=== PATIENT | male | born 1950 | race Caucasian/White ===

== ENCOUNTER → 2016-07-21 | Outpatient (CLI) | payer MEDICARE ==
[2016-07-21 10:06] LABS: BASO # 0.1 K/mm3 (0.0-0.2); BASO % 1.3 % (0.0-1.0); EOS # 0.3 K/mm3 (0.0-0.50); EOS % 4.3 % (0.0-3.0); LARGE UNSTAINED CELL # 0.1 K/mm3 (0.0-0.4); LARGE UNSTAINED CELL % 1.8 % (0.0-4.0); LYMPH # 1.2 K/mm3 (1.5-4.5); LYMPH % 13.5 % (24.0-44.0); MEAN CORPUSCULAR HEMOGLOBIN 30.8 pg (27.0-33.0); MEAN CORPUSCULAR HGB CONC 32.6 g/dl (32.0-36.5); MEAN CORPUSCULAR VOLUME 94.2 fl (80.0-96.0); MONO # 0.5 K/mm3 (0.0-0.8); MONO % 5.9 % (0.0-5.0); NEUTROPHILS # 5.6 K/mm3 (1.8-7.7); NEUTROPHILS % 73.2 % (36.0-66.0); PLATELET COUNT, AUTOMATED 168 k/mm3 (150-450); RED CELL DISTRIBUTION WIDTH 13.7 % (11.5-14.5); WHITE BLOOD COUNT 7.7 K/mm3 (4.0-10.0)
[2016-07-21 10:35] LABS: ALBUMIN 2.9 GM/DL (3.2-5.2); ALBUMIN/GLOBULIN RATIO 0.88 (1.00-1.93); BILIRUBIN,TOTAL 0.3 MG/DL (0.2-1.0); CALCIUM LEVEL 9.3 MG/DL (8.8-10.2); CREATININE FOR GFR 1.88 MG/DL (0.70-1.30); GLOMERULAR FILTRATION RATE 38.5 (>49); MAGNESIUM LEVEL 1.9 MG/DL (1.8-2.4); PERCENT SATURATION 27.6 % (19.7-37.4); PHOSPHORUS LEVEL 3.4 MG/DL (2.5-4.9); POTASSIUM SERUM 4.4 MEQ/L (3.5-5.1); TOTAL PROTEIN 6.2 GM/DL (6.4-8.2)
[2016-07-21 13:11] LABS: PRETREATED FOLATE FOR RBCFOL 17.5 NG/ML
== END ==
LOC: M WUC 08:26
PROVIDERS: ATTEND Surgery
DX: Z98.84 Bariatric surgery status (principal); K91.2 Postsurgical malabsorption, not elsewhere classified; E55.9 Vitamin D deficiency, unspecified

== ENCOUNTER → 2016-08-28 | Outpatient (CLI) | payer MEDICARE ==
--- NOTE | 2016-08-28 09:49 | REP ---
Not so marked lumbar spine five views: Comparison is 07/09/2014. There is mild scoliosis convex right at the thoracolumbar junction. There is surgical staple lines in the abdominal left upper quadrant, not present previously. There is bilateral L5 spondylolysis with grade 1 spondylolisthesis, not significantly changed. Vertebral alignment is otherwise unremarkable. Vertebral body heights are normal. There is anterior spurring at the T11-12, T12-L1, L1-2, and L2-3 disc spaces compatible with degenerative disc disease at these levels. There is disc space narrowing at T11-12, T12-L1, L1-2 and L5- S1 also compatible with degenerative disc disease. The pedicles and facets are unremarkable. The sacroiliac articulations are unremarkable. There are calcifications in the pelvis inferior to the sacroiliac articulations, likely vascular atheromatous calcifications, however, ureteral calculi are not entirely discounted. Correlation with symptomatology is recommended. Impression: Scoliosis. Multilevel degenerative disc disease. L5 bilateral spondylolysis with grade 1 spondylolisthesis, unchanged. Pelvic calcifications, likely vascular atheroma although ureteral calculi are not entirely discounted. Surgical staple lines in the abdominal left upper quadrant. Signed by Tree Hurst MD 08/28/2016 09:41 A
== END ==
LOC: M WUC 09:00
PROVIDERS: ATTEND Family Medicine
DX: M41.9 Scoliosis, unspecified (principal); M51.9 Unspecified thoracic, thoracolumbar and lumbosacral intervertebral disc disorder; M43.10 Spondylolisthesis, site unspecified

== ENCOUNTER → 2016-12-24 | Outpatient (CLI) | payer MEDICARE ==
--- NOTE | 2016-12-24 10:29 | REP ---
URINARY TRACT SONOGRAPHY: Renal Doppler arterial flow assessment: HISTORY: Renovascular hypertension. Comparison study January 28, 2010. MORPHOLOGIC FINDINGS: Scanning at the level of the urinary bladder shows poor filling but no other abnormality. Renal cortical echogenicity pattern is somewhat increased bilaterally consistent with chronic medical renal disease and renal contours are smooth on both sides. The right kidney measures 9.4 x 5.8 x 5.7 cm. Left renal dimensions are 10.3 x 6.1 x 6.1 cm. Previous ultrasound dimensions are somewhat larger, right renal length is 11.4 and left renal length 11.8 cm. In the right kidney, there is a 1.9 x 1.8 x 2.7 cm parapelvic cyst. Previously this was noted measuring 1.0 cm in greatest diameter. In the left kidney, there is a 1.3 x 1.0 x 0.8 cm parapelvic cyst at the upper pole region. Previously this measured 0.9 cm in greatest diameter. Today's study also shows a 0.8 cm cyst at the lower pole. RENAL DOPPLER FLOW ASSESSMENT: Peak systolic flow velocity in the abdominal aorta at the level of the main renal arteries is normal at 106.9 cm/s. Peak systolic flow velocity in the right main renal artery is 107 cm/s as well and that recorded in the left main renal artery is 98 cm/s. Renal to aortic flow velocity ratios are therefore normal at 1.0 on the right and 0.9 on the left. The resistive indices and acceleration times of the intralobar arteries are measured bilaterally in the upper, mid and lower poles of these values are normal on both sides. IMPRESSION: 1. No Doppler evidence to suggest renal artery stenosis. 2. Increased renal cortical echogenicity pattern consistent with chronic medical renal disease bilaterally. Some atrophy suspected since the prior study. 3. Bilateral peripelvic cysts. The largest of these is on the right measuring 2.7 cm in greatest diameter. Signed by Franky Farley MD 12/24/2016 12:38 P
== END ==
LOC: M RAD 08:34
PROVIDERS: ATTEND Internal Medicine Nephrology
DX: N28.9 Disorder of kidney and ureter, unspecified (principal); I15.0 Renovascular hypertension

== ENCOUNTER → 2017-02-10 | Outpatient (CLI) | payer MEDICARE ==
--- NOTE | 2017-02-10 13:51 | REP ---
CAROTID ULTRASOUND: Real-time ultrasound evaluation and duplex Doppler interrogation of the extracranial carotid vascular is performed. Mild scattered plaquing and narrowing is seen in both common carotid arteries and carotid bulbs extending into the internal carotid arteries bilaterally. There is mild elevation of the peak systolic velocity in the right internal carotid artery, but there is also a similar velocity in the right common carotid artery with normal ICA to CCA ratios, suggesting that there is not significant stenosis of the right internal carotid artery. Luminal narrowing visually appears to be less than 50%. There is normal direction of flow in both vertebral arteries. RIGHT LEFT Peak systolic velocity ICA 132.2 cm/s 105.0 cm/s End diastolic velocity ICA 34.7 cm/s 30.7 cm/s Peak systolic velocity CCA 132.2 cm/s 140.7 cm/s Peak systolic velocity ECA 168.3 cm/s 141.4 cm/s ICA/CCA ratio 1.0 0.75 IMPRESSION: Mild scattered plaquing and narrowing in both carotid systems as discussed above with luminal narrowing appearing to be less than 50%. No evidence for hemodynamically significant stenosis. There is mild elevation of the peak systolic velocity in the right internal carotid artery, but there is also a mild elevation of the peak systolic velocity in the common carotid arteries, with normal ICA to CCA ratios. There is not felt to be significant stenosis in either internal carotid artery. More complete evaluation may be made with MRA if clinically indicated. Signed by Tree Martins MD 02/11/2017 05:51 P
== END ==
LOC: M RAD 12:10
PROVIDERS: ATTEND Internal Medicine Interventional Cardiology
DX: I65.22 Occlusion and stenosis of left carotid artery (principal); I25.10 Atherosclerotic heart disease of native coronary artery without angina pectoris

== ENCOUNTER → 2017-03-25 | Outpatient (CLI) | payer MEDICARE ==
[2017-03-25 12:14] LABS: MEAN CORPUSCULAR HEMOGLOBIN 31.2 pg (27.0-33.0); MEAN CORPUSCULAR HGB CONC 32.4 g/dl (32.0-36.5); MEAN CORPUSCULAR VOLUME 96.4 fl (80.0-96.0); PLATELET COUNT, AUTOMATED 174 k/mm3 (150-450); RED CELL DISTRIBUTION WIDTH 12.9 % (11.5-14.5); WHITE BLOOD COUNT 6.7 K/mm3 (4.0-10.0)
[2017-03-25 12:15] LABS: ADD MANUAL DIFFER NO; BASO % 0.5 % (0.0-1.0); DIFF SLIDE NUMBER 149; EOS # 0.2 K/mm3 (0.0-0.50); EOS % 2.2 % (0.0-3.0); LARGE UNSTAINED CELL # 0.1 K/mm3 (0.0-0.4); LARGE UNSTAINED CELL % 1.2 % (0.0-4.0); LYMPH % 14.5 % (24.0-44.0); MONO # 0.5 K/mm3 (0.0-0.8); MONO % 6.8 % (0.0-5.0); NEUTROPHILS % 74.8 % (36.0-66.0)
[2017-03-25 13:27] LABS: ALBUMIN 3.2 GM/DL (3.2-5.2); BILIRUBIN,TOTAL 0.3 MG/DL (0.2-1.0); CALCIUM LEVEL 9.2 MG/DL (8.8-10.2); CREATININE FOR GFR 2.21 MG/DL (0.70-1.30); GLOMERULAR FILTRATION RATE 31.9 (>49); POTASSIUM SERUM 4.9 MEQ/L (3.5-5.1); TOTAL PROTEIN 6.4 GM/DL (6.4-8.2)
== END ==
LOC: M WUC 08:01
PROVIDERS: ATTEND Family Medicine
DX: N18.4 Chronic kidney disease, stage 4 (severe) (principal); R73.01 Impaired fasting glucose; E03.9 Hypothyroidism, unspecified

== ENCOUNTER → 2017-07-05 | Outpatient (REF) | payer MEDICARE | LOC: M LAB REF 13:49 | PROVIDERS: ATTEND Family Medicine | DX: N45.3 Epididymo-orchitis (principal) ==

== ENCOUNTER → 2017-09-28 | Outpatient (CLI) | payer MEDICARE ==
[2017-09-28 09:26] LABS: BASO % 0.5 % (0.0-1.0); EOS # 0.2 10^3/uL (0.0-0.50); EOS % 2.3 % (0.0-3.0); HEMATOCRIT 37.3 % (42.0-52.0); HEMOGLOBIN 12.1 g/dl (14.0-18.0); IMMATURE GRANULOCYTE % 0.4 % (0-3.0); LYMPH # 1.2 10^3/uL (1.5-4.5); LYMPH % 15.4 % (24.0-44.0); MEAN CORPUSCULAR HEMOGLOBIN 30.6 pg (27.0-33.0); MEAN CORPUSCULAR HGB CONC 32.4 g/dl (32.0-36.5); MEAN CORPUSCULAR VOLUME 94.4 fl (80.0-96.0); MONO # 0.7 10^3/uL (0.0-0.8); MONO % 8.8 % (0.0-5.0); NEUTROPHILS # 5.4 10^3/uL (1.8-7.7); NEUTROPHILS % 72.6 % (36.0-66.0); PLATELET COUNT, AUTOMATED 151 10^3/uL (150-450); RED BLOOD COUNT 3.95 10^6/uL (4.30-6.10); RED CELL DISTRIBUTION WIDTH 14.4 % (11.5-14.5); WHITE BLOOD COUNT 7.5 10^3/uL (4.0-10.0)
[2017-09-28 09:38] LABS: ESTIMATED AVERAGE GLUCOSE 128 MG/DL (60-110); HEMOGLOBIN A1c 6.1 %
[2017-09-28 09:54] LABS: ALBUMIN 3.3 GM/DL (3.2-5.2); ALKALINE PHOSPHATASE 59 U/L (45-117); ALT/SGPT 37 U/L (12-78); ANION GAP 7 MEQ/L (8-16); AST/SGOT 18 U/L (7-37); BILIRUBIN,TOTAL 0.3 MG/DL (0.2-1.0); BLOOD UREA NITROGEN 62 MG/DL (7-18); CALCIUM LEVEL 9.5 MG/DL (8.8-10.2); CARBON DIOXIDE LEVEL 22 MEQ/L (21-32); CHLORIDE LEVEL 117 MEQ/L (98-107); CHOLESTEROL LEVEL 220 MG/DL (<200); CREATININE FOR GFR 2.47 MG/DL (0.70-1.30); GLUCOSE, FASTING 103 MG/DL (70-100); HDL CHOLESTEROL 44 MG/DL (>40); LDL CHOLESTEROL 143.6 MG/DL (<100); NON-HDL-C 176 MG/DL; POTASSIUM SERUM 4.5 MEQ/L (3.5-5.1); SODIUM LEVEL 146 MEQ/L (136-145); TOTAL PROTEIN 6.6 GM/DL (6.4-8.2); TRIGLYCERIDES LEVEL 162 MG/DL (<150)
== END ==
LOC: M WUC 08:03
DX: I12.9 Hypertensive chronic kidney disease with stage 1 through stage 4 chronic kidney disease, or unspecified chronic kidney disease (principal); E11.21 Type 2 diabetes mellitus with diabetic nephropathy; M10.9 Gout, unspecified
CPT/HCPCS: 84443

== ENCOUNTER → 2017-11-03 | Outpatient (CLI) | payer MEDICARE | LOC: M WUC 08:54 | DX: M25.721 Osteophyte, right elbow (principal); M25.521 Pain in right elbow; M25.531 Pain in right wrist; W00.0XXA Fall on same level due to ice and snow, initial encounter; Y92.9 Unspecified place or not applicable; Y93.9 Activity, unspecified | CPT/HCPCS: 73080 ==

== ENCOUNTER 2018-01-26 10:44 | Day surgery (SDC) | payer MEDICARE ==
[~2018-01-26 10:44] MED LIST: LIDOCAINE 2% MDV 20 ML VIAL As Ordered; PROPOFOL 200 MG/20 ML VIAL As Ordered
[2018-01-26] MEDS: NS 1,000 ML IV (11:00)
[2018-01-26 12:57] LABS: BEDSIDE GLUCOSE 112 MG/DL (80-115)
[2018-01-26] MEDS ORDERED: LABETALOL HCL 100 MG/20 ML VIAL As Ordered (13:21)
== END 2018-01-26 14:21 | disposition home or self-care (01) ==
LOC: M OPP 10:44
DX: Z12.11 Encounter for screening for malignant neoplasm of colon (principal); K64.0 First degree hemorrhoids; K57.30 Diverticulosis of large intestine without perforation or abscess without bleeding; I12.9 Hypertensive chronic kidney disease with stage 1 through stage 4 chronic kidney disease, or unspecified chronic kidney disease; E11.9 Type 2 diabetes mellitus without complications; E78.00 Pure hypercholesterolemia, unspecified; I25.10 Atherosclerotic heart disease of native coronary artery without angina pectoris; N18.9 Chronic kidney disease, unspecified; Z79.82 Long term (current) use of aspirin; Z79.84 Long term (current) use of oral hypoglycemic drugs; Z79.899 Other long term (current) drug therapy; Z88.8 Allergy status to other drugs, medicaments and biological substances; Z87.39 Personal history of other diseases of the musculoskeletal system and connective tissue; Z87.09 Personal history of other diseases of the respiratory system; Z82.49 Family history of ischemic heart disease and other diseases of the circulatory system; Z83.49 Family history of other endocrine, nutritional and metabolic diseases; Z83.3 Family history of diabetes mellitus
CPT/HCPCS: G0121

== ENCOUNTER → 2018-03-25 | Outpatient (REF) | payer MEDICARE ==
[2018-03-25 14:11] LABS: PROTHROMBIN TIME 13.3 SECONDS (12.1-14.4)
[2018-03-25 15:50] LABS: TOTAL PROTEIN 6.3 GM/DL (6.4-8.2)
[2018-03-25 15:50] LABS: COMPLEMENT C3 116 MG/DL (90-180)
[2018-03-30 00:07] LABS: ANCA-ATYPICAL <1:20 titer (Neg:<1:20); ANTI DOUBLE STRAND-DNA AB <1 IU/mL (0-9); ANTI-GLOMERULAR BASEMENT MEMB 4 units (0-20); CYTOPLASMIC NEUTROP AB ANCA-C <1:20 titer (Neg:<1:20); PERINUCLEAR AB ANCA-P <1:20 titer (Neg:<1:20)
[2018-03-30 16:11] LABS: ALBUMIN 3.45 GM/DL (3.29-5.55); ALBUMIN % 54.8 % (55.8-66.1); ALPHA-1-GLOBULIN % 4.3 % (2.9-4.9); ALPHA-1-GLOBULINS 0.27 GM/DL (0.17-0.41); ALPHA-2-GLOBULINS 1.04 GM/DL (0.42-0.99); ALPHA-2-GLOBULINS % 16.5 % (7.1-11.8); BETA-1-GLOBULINS 0.36 GM/DL (0.28-0.60); BETA-1-GLOBULINS % 5.7 % (4.7-7.2); BETA-2-GLOBULINS 0.36 GM/DL (0.19-0.55); BETA-2-GLOBULINS % 5.7 % (3.2-6.5); GAMMA GLOBULINS 0.82 GM/DL (0.65-1.58)
== END ==
LOC: M LAB REF 13:29
DX: R80.9 Proteinuria, unspecified (principal); R31.9 Hematuria, unspecified
CPT/HCPCS: 84165

== ENCOUNTER → 2018-04-12 | Outpatient (REF) | payer MEDICARE ==
[2018-04-12 14:47] LABS: FERRITIN 156 NG/ML (26-388); FOLATE > 24.0 NG/ML
== END ==
LOC: M LAB REF 13:40
DX: Z98.84 Bariatric surgery status (principal)
CPT/HCPCS: 82746

== ENCOUNTER 2018-06-07 06:58 | Outpatient (CLI) | payer MEDICARE ==
[2018-06-07 08:59] LABS: IMMEDIATE SPIN CROSSMATCH 1
[2018-06-07] MEDS ORDERED: LIDOCAINE 1% MDV 20ML VIAL As Ordered (10:14)
== END 2018-06-07 11:25 | disposition home or self-care (01) ==
LOC: M INFU 06:58
DX: D69.6 Thrombocytopenia, unspecified (principal); Z88.8 Allergy status to other drugs, medicaments and biological substances; Z88.1 Allergy status to other antibiotic agents; Z79.899 Other long term (current) drug therapy; Z79.01 Long term (current) use of anticoagulants
CPT/HCPCS: 36430

== ENCOUNTER → 2018-06-07 | Outpatient (CLI) | payer MEDICARE ==
[~2018-06-07] MED LIST changes: +ALLO100T PO; +ASPI325T25 PO; +BENA20TA8 PO; +CALC1CAP31 PO; +CARV12.5 PO; +CARV25TA PO; +CIAL5TAB PO; +CITRTAB13 PO; +CLOP75TA2 PO; +FLUTISP NARES; +GLIP2.5T6 PO; +HYDR100T PO; -LIDOCAINE 2% MDV 20 ML VIAL As Ordered; +MULTCAP PO; +NITR0.4S14 SL; +OMEP20TA PO; -PROPOFOL 200 MG/20 ML VIAL As Ordered; +TERA2CAP3 PO; +VITA100072 PO
--- NOTE | 2018-06-07 16:40 | REP ---
ULTRASOUND GUIDANCE FOR RENAL BIOPSY: Real-time sonographic evaluation of the left kidney performed to provide ultrasound guidance for a biopsy performed by Dr. Bowles. Visualized left kidney is unremarkable on prebiopsy imaging. Post biopsy images show no postbiopsy hematoma. Electronically Signed by Tree Martins MD 06/07/2018 04:56 P
== END ==
LOC: M RADPRO 06:44
PROVIDERS: ATTEND Internal Medicine Nephrology
DX: R80.9 Proteinuria, unspecified (principal); D69.6 Thrombocytopenia, unspecified; E11.21 Type 2 diabetes mellitus with diabetic nephropathy; Z79.899 Other long term (current) drug therapy; Z88.8 Allergy status to other drugs, medicaments and biological substances
CPT/HCPCS: 36415; 36430; 47000; 76942; 86900; 86901; 88300; 89240; P9034

== ENCOUNTER → 2018-10-03 | Outpatient (CLI) | payer MEDICARE ==
[2018-10-03 09:58] LABS: BASO % 0.4 % (0.0-1.0); EOS # 0.2 10^3/uL (0.0-0.50); EOS % 2.5 % (0.0-3.0); HEMATOCRIT 32.2 % (42.0-52.0); HEMOGLOBIN 10.3 g/dl (13.5-17.5); LYMPH # 1.1 10^3/uL (1.5-4.5); LYMPH % 15.2 % (24.0-44.0); MEAN CORPUSCULAR HEMOGLOBIN 31.5 pg (27.0-33.0); MEAN CORPUSCULAR VOLUME 98.5 fl (80.0-96.0); MONO # 0.7 10^3/uL (0.0-0.8); MONO % 9.5 % (0.0-5.0); NEUTROPHILS # 5.2 10^3/uL (1.8-7.7); PLATELET COUNT, AUTOMATED 161 10^3/uL (150-450); RED BLOOD COUNT 3.27 10^6/uL (4.30-6.10); WHITE BLOOD COUNT 7.3 10^3/uL (4.0-10.0)
[2018-10-03 10:52] LABS: ALBUMIN 3.3 GM/DL (3.2-5.2); BILIRUBIN,TOTAL 0.3 MG/DL (0.2-1.0); CALCIUM LEVEL 9.4 MG/DL (8.8-10.2); CHOLESTEROL RISK RATIO 4.756 (<5); CREATININE FOR GFR 3.37 MG/DL (0.70-1.30); GLOMERULAR FILTRATION RATE 19.5 (>49); POTASSIUM SERUM 4.6 MEQ/L (3.5-5.1); THYROID STIMULATING HORMONE 1.68 uIU/ML (0.358-3.740); TOTAL PROTEIN 6.5 GM/DL (6.4-8.2)
== END ==
LOC: M WUC 08:44
PROVIDERS: ATTEND Family Medicine
DX: Z98.84 Bariatric surgery status (principal); I12.0 Hypertensive chronic kidney disease with stage 5 chronic kidney disease or end stage renal disease; E78.5 Hyperlipidemia, unspecified; D64.9 Anemia, unspecified; M10.9 Gout, unspecified

== ENCOUNTER → 2019-01-13 | Outpatient (CLI) | payer MEDICARE ==
[~2019-01-13] MED LIST changes: +ASPI-255 PO; -ASPI325T25 PO; +VITA100018 PO; -VITA100072 PO
[2019-01-13 15:56] LABS: CHOLESTEROL RISK RATIO 3.461 (<5)
== END ==
LOC: M WUC 10:32
PROVIDERS: ATTEND Nurse Practitioner Adult Health
DX: E78.5 Hyperlipidemia, unspecified (principal)

== ENCOUNTER → 2019-03-16 | Outpatient (REF) | payer MEDICARE ==
[2019-03-16 17:58] LABS: PERCENT SATURATION 23.5 % (19.7-50.0)
== END ==
LOC: M LAB REF 17:11
PROVIDERS: ATTEND Internal Medicine Nephrology
DX: D50.9 Iron deficiency anemia, unspecified (principal)

== ENCOUNTER → 2019-03-31 | Outpatient (CLI) | payer MEDICARE ==
[2019-03-31 09:06] LABS: HEMATOCRIT 28.3 % (42.0-52.0); HEMOGLOBIN 9.1 g/dl (13.5-17.5); MEAN CORPUSCULAR HEMOGLOBIN 31.8 pg (27.0-33.0); MEAN CORPUSCULAR HGB CONC 32.2 g/dl (32.0-36.5); PLATELET COUNT, AUTOMATED 120 10^3/uL (150-450); RED BLOOD COUNT 2.86 10^6/uL (4.30-6.10); WHITE BLOOD COUNT 7.7 10^3/uL (4.0-10.0)
[2019-03-31 09:40] LABS: ALBUMIN 3.2 GM/DL (3.2-5.2); BILIRUBIN,TOTAL 0.4 MG/DL (0.2-1.0); CALCIUM LEVEL 9.7 MG/DL (8.8-10.2); CHOLESTEROL RISK RATIO 2.159 (<5); CREATININE FOR GFR 3.39 MG/DL (0.70-1.30); GLOMERULAR FILTRATION RATE 19.3 (>49); MAGNESIUM LEVEL 2.2 MG/DL (1.8-2.4); POTASSIUM SERUM 4.9 MEQ/L (3.5-5.1); THYROID STIMULATING HORMONE 2.12 uIU/ML (0.358-3.740); TOTAL PROTEIN 6.2 GM/DL (6.4-8.2)
[2019-03-31 09:48] LABS: HEMOGLOBIN A1c 5.8 %
== END ==
LOC: M WUC 07:57
PROVIDERS: ATTEND Family Medicine
DX: D64.9 Anemia, unspecified (principal); E78.5 Hyperlipidemia, unspecified; I12.0 Hypertensive chronic kidney disease with stage 5 chronic kidney disease or end stage renal disease; E11.21 Type 2 diabetes mellitus with diabetic nephropathy; E11.40 Type 2 diabetes mellitus with diabetic neuropathy, unspecified; Z98.84 Bariatric surgery status

== ENCOUNTER → 2019-04-20 | Outpatient (REF) | payer MEDICARE ==
[2019-04-20 14:15] LABS: FERRITIN 126 NG/ML (26-388); IRON (FE) 45 UG/DL (65-175); PERCENT SATURATION 17.7 % (19.7-50.0); TOTAL IRON BINDING CAPACITY 254 UG/DL (250-450)
[2019-04-20 14:23] LABS: FOLATE > 24.0 NG/ML; VITAMIN B12 LEVEL 861 PG/ML
== END ==
LOC: M LAB REF 13:40
PROVIDERS: ATTEND Family Medicine
DX: D64.9 Anemia, unspecified (principal)

== ENCOUNTER → 2019-08-04 | Outpatient (CLI) | payer MEDICARE ==
[~2019-08-04] MED LIST changes: +OMEP-358 PO; -OMEP20TA PO
--- NOTE | 2019-08-04 16:17 | REP ---
RIGHT RIB SERIES: Five views of the right ribs are performed and demonstrate no fracture or bone lesion. An accompanying view of the chest demonstrates no acute infiltrate, pneumothorax, or pleural effusion. Heart does not appear to be significantly enlarged. IMPRESSION: No evidence of right rib fracture. Unreviewed
== END ==
LOC: M WUC 10:32
PROVIDERS: ATTEND Physician Assistant
DX: S20.221A Contusion of right back wall of thorax, initial encounter (principal); W18.30XA Fall on same level, unspecified, initial encounter; Y92.009 Unspecified place in unspecified non-institutional (private) residence as the place of occurrence of the external cause

== ENCOUNTER → 2019-09-19 | Outpatient (CLI) | payer MEDICARE ==
[2019-09-19 10:37] LABS: CHOLESTEROL RISK RATIO 3.68 (<5)
== END ==
LOC: M WUC 08:14
PROVIDERS: ATTEND Nurse Practitioner Adult Health
DX: I25.10 Atherosclerotic heart disease of native coronary artery without angina pectoris (principal); E78.00 Pure hypercholesterolemia, unspecified

== ENCOUNTER → 2019-10-13 | Outpatient (REF) | payer MEDICARE ==
[~2019-10-13] MED LIST changes: -CITRTAB13 PO; +CITRTAB16 PO
[2019-10-13 15:13] LABS: HEPATITIS B CORE ANTIBODY IGM NEGATIVE (NEGATIVE); HEPATITIS B SURFACE ANTIBODY NEGATIVE (POSITIVE); HEPATITIS B SURFACE ANTIGEN NEGATIVE (NEGATIVE)
== END ==
LOC: M LAB REF 13:37
PROVIDERS: ATTEND Internal Medicine Nephrology
DX: N18.6 End stage renal disease (principal)

== ENCOUNTER → 2019-12-17 | Outpatient (CLI) | payer MEDICARE ==
[~2019-12-17] MED LIST changes: +ISOS60TA2 PO; +NORC1TAB7 PO
== END ==
LOC: M LABSMTC 10:23
PROVIDERS: ATTEND Anesthesiology
DX: Z03.818 Encounter for observation for suspected exposure to other biological agents ruled out (principal); Z11.59 Encounter for screening for other viral diseases
CPT/HCPCS: C9803; U0003

== ENCOUNTER → 2019-12-18 | Outpatient (REF) | payer MEDICARE ==
[2019-12-20 10:16] LABS: HEPATITIS B CORE ANTIBODY IGM NEGATIVE (NEGATIVE); HEPATITIS B SURFACE ANTIBODY NEGATIVE (POSITIVE); HEPATITIS B SURFACE ANTIGEN NEGATIVE (NEGATIVE); HEPATITIS C VIRUS ABY INDEX 0.2 INDEX (<0.8)
== END ==
LOC: M LAB REF 17:17
PROVIDERS: ATTEND Internal Medicine Nephrology
DX: N18.6 End stage renal disease (principal)

== ENCOUNTER 2019-12-20 05:58 | Day surgery (SDC) | payer MEDICARE ==
[~2019-12-20] VITALS: Ht 165.1 cm; Wt 71.7 kg
[~2019-12-20 05:58] MED LIST changes: -NORC1TAB7 PO
[2019-12-20] MEDS ORDERED: ceFAZolin SOD 2 GM in IV 1 EA IV ONE (06:00)
[2019-12-20] MEDS ORDERED: LR 1,000 ML IV ONE (06:00)
[2019-12-20] MEDS ORDERED: HEPARIN SOD (PORCINE) 5000UNITS/ML VIAL (J1644 PER 1000UNITS) As Ordered ONE (07:14)
[2019-12-20] MEDS ORDERED: LIDOCAINE 1% SDV 30ML VIAL As Ordered ONE (07:14)
[2019-12-20] MEDS ORDERED: D5W/0.2% SODIUM CHLORIDE 1,000 ML IV ONE (07:15)
[2019-12-20] MEDS ORDERED: fentaNYL 250 MCG/5 ML INJECTION (J3010) As Ordered ONE (07:18)
[2019-12-20] MEDS ORDERED: MIDAZOLAM INJ 2MG/2ML VIAL (J2250 PER 1MG) As Ordered ONE (07:18)
[2019-12-20] MEDS ORDERED: propofoL 200 MG/20 ML VIAL As Ordered ONE ×2 (07:19→08:20)
[2019-12-20] MEDS ORDERED: ROCURONIUM BROMIDE 50 MG/5 ML VIAL As Ordered ONE (07:19)
[2019-12-20] MEDS ORDERED: LIDOCAINE 2% 100MG/5ML SDV (FOR ANES.) As Ordered ONE (07:19)
[2019-12-20] MEDS ORDERED: ONDANSETRON 4MG/2ML VIAL As Ordered ONE (08:16)
[2019-12-20] MEDS ORDERED: NORC1TAB7 PO (10:12)
[2019-12-20] MEDS ORDERED: oxyCODONE 5MG TAB PO PRN (11:45)
[2019-12-20] MEDS ORDERED: ACETAMINOPHEN TAB 650MG DOSE (2X325MG) PO PRN (11:45)
[2019-12-20] MEDS ORDERED: ACETAMINOPH W/CODEINE #3 TAB UD PO PRN (11:45)
[2019-12-20 12:15] VITALS: BP 187/80
--- NOTE | 2019-12-26 07:42 | RO ---
DATE OF PROCEDURE: 12/20/2019 PREOPERATIVE DIAGNOSIS: End-stage renal disease. POSTOPERATIVE DIAGNOSIS: End-stage renal disease. PROCEDURE: Implantation of a continuous ambulatory peritoneal dialysis catheter. SURGEON: Dr. Dom Newman [employer] MACHINE HELPER: ANESTHESIA: Local of 1% Xylocaine with monitored anesthesia care. INDICATIONS FOR PROCEDURE: The patient is a 69-year-old man with progressive renal failure approaching the need for dialysis. He is now for placement of a peritoneal dialysis catheter. OPERATIVE PROCEDURE: The patient was brought to the operating room and placed on the table in a supine position. He was placed under moderate sedation by anesthesia. The patient's abdomen was prepped and draped in a sterile fashion. The patient's left upper quadrant was inspected and a site was marked for the placement of the catheter in a left paramedian position, several centimeters above the belt line, which was several centimeters above the umbilicus. 1% lidocaine was infiltrated around this area and an approximately 3 cm paramedian incision was made. This was deepened through the subcutaneous tissues using the cautery. The anterior rectus sheath was elevated and incised longitudinally. The rectus fibers were spread and hemostasis was ensured with the cautery. The posterior fascia was elevated and a small incision was made into the peritoneum. A pursestring suture of #2-0 Vicryl was placed around this opening. The 62 cm double pledgeted Jack pigtail dialysis catheter was selected. This was placed over a long stylet. The patient was tilted into a Trendelenburg position. The anterior abdominal wall was slightly elevated and the catheter was inserted through the opening into the abdomen and inserted approximately 10-15 cm. The catheter was then gently slipped off of the long stylet into the abdomen. The pursestring suture was tied down and then tied about the pledget to hold this in place. The patient was returned to a flat position. The anterior rectus fascia was closed with a running suture of #0 Vicryl. The catheter was tunneled through the subcutaneous tissues to exit slightly lower and more lateral in the left upper quadrant. The outer pledget was placed approximately a centimeter below the skin surface. The infusion hub was attached. The catheter was then trialed by infusing approximately 950 mL of sterile saline through the catheter. While the fluid was infusing, the subcutaneous tissues were closed with #3-0 chromic and #4-0 Vicryl respectively. Once the fluid had nearly completely infused, the bag was dropped and by gravity siphon approximately 550-600 mL of fluid eventually returned. The catheter was then filled with 1 mL of 5000 units/mL heparin and approximately 1.3 mL of sterile saline. The catheter was plugged and a clamp was also applied to the catheter. The insertion incision was closed with Steri-Strips as well. A CHG OpSite was placed at the catheter exit site. Several gauze pads were used to cover this and placed with what amounted to a drip pad at the exit site along the catheter and this was all held in place with tape. The patient tolerated the procedure well without apparent complication. He was awakened in the operating room and transported to advanced recovery in stable condition.
== END 2019-12-20 12:20 | disposition home or self-care (01) ==
LOC: M SDC 05:58
PROVIDERS: ATTEND Surgery
DX: N18.4 Chronic kidney disease, stage 4 (severe) (principal); E21.3 Hyperparathyroidism, unspecified; K21.9 Gastro-esophageal reflux disease without esophagitis; E11.9 Type 2 diabetes mellitus without complications; I10 Essential (primary) hypertension; M10.9 Gout, unspecified; Z98.84 Bariatric surgery status; D64.9 Anemia, unspecified; Z98.61 Coronary angioplasty status; Z88.1 Allergy status to other antibiotic agents; Z88.8 Allergy status to other drugs, medicaments and biological substances; Z79.82 Long term (current) use of aspirin; Z79.899 Other long term (current) drug therapy
CPT/HCPCS: 36415; 49421; 84132; J0690; J1644; J2250; J2405; J3010

== ENCOUNTER → 2020-03-20 | Outpatient (REF) | payer MEDICARE ==
[~2020-03-20] MED LIST changes: +NORC1TAB7 PO
== END ==
LOC: M LAB REF 17:59
PROVIDERS: ATTEND Family Medicine
DX: M10.9 Gout, unspecified (principal)

== ENCOUNTER → 2020-09-10 | Outpatient (CLI) | payer MEDICARE ==
[~2020-09-10] MED LIST changes: +ISOS1TAB36 PO; -ISOS60TA2 PO
--- NOTE | 2020-09-10 09:21 | REP ---
INDICATION: PRE KIDNEY TRANSPLANT EVAL. COMPARISON: None. TECHNIQUE: Real-time sonographic evaluation of ABDOMEN performed. FINDINGS: The gallbladder demonstrates no evidence of intraluminal sludge or calculi, wall thickening or pericholecystic fluid. There is no intrahepatic or extrahepatic biliary dilatation, common bile duct measures 3 mm in maximum diameter. The liver demonstrates homogeneous echotexture with no gross mass. Pancreas is not visualized due to overlying bowel gas. Spleen is normal in size with no intrinsic abnormality, measuring 11.6 cm in length. Both kidneys are mildly atrophic and demonstrate hyperechoic echotexture compatible with medical renal disease. There is an extrarenal pelvis on the right without overt hydronephrosis. There is a simple cyst of the mid left kidney 1.4 cm in diameter. The right kidney measures 8.8 x 5.1 x 4.9 cm. Left renal dimensions are 8.5 x 5.0 x 5.2 cm. The abdominal aorta is not visualized due to overlying bowel gas. Mild perihepatic and perisplenic fluid is seen. IMPRESSION: Mild bilateral renal atrophy with increased echotexture of the kidneys. Left renal cyst 1.4 cm in diameter. Mild free fluid in the upper abdomen. <Electronically signed by Tree Martins > 09/10/20 [id number]
== END ==
LOC: M RAD 07:45
DX: Z01.818 Encounter for other preprocedural examination (principal); N28.1 Cyst of kidney, acquired; N26.1 Atrophy of kidney (terminal)

== ENCOUNTER → 2020-09-26 | Outpatient (CLI) | payer MEDICARE | LOC: M LABSMTC 11:31 | PROVIDERS: ATTEND Internal Medicine Cardiovascular Disease | DX: Z01.812 Encounter for preprocedural laboratory examination (principal); Z20.822 Contact with and (suspected) exposure to COVID-19 ==

== ENCOUNTER → 2020-09-27 | Outpatient (CLI) | payer MEDICARE ==
[2020-09-27 13:10] LABS: BASO % 0.5 % (0.0-1.0); EOS # 0.3 10^3/uL (0.0-0.5); EOS % 3.8 % (0.0-3.0); HEMATOCRIT 33.1 % (42.0-52.0); HEMOGLOBIN 10.3 g/dl (13.5-17.5); LYMPH # 0.9 10^3/uL (1.5-5.0); LYMPH % 12.8 % (24.0-44.0); MEAN CORPUSCULAR HEMOGLOBIN 31.8 pg (27.0-33.0); MEAN CORPUSCULAR HGB CONC 31.1 g/dl (32.0-36.5); MEAN CORPUSCULAR VOLUME 102.2 fl (80.0-96.0); MONO # 0.6 10^3/uL (0.0-0.8); MONO % 9.4 % (2.0-8.0); NEUTROPHILS # 4.8 10^3/uL (1.5-8.5); NEUTROPHILS % 72.9 % (36.0-66.0); PLATELET COUNT, AUTOMATED 146 10^3/uL (150-450); RED BLOOD COUNT 3.24 10^6/uL (4.30-6.10); WHITE BLOOD COUNT 6.6 10^3/uL (4.0-10.0)
[2020-09-27 13:27] LABS: CALCIUM LEVEL 9.1 MG/DL (8.8-10.2); CREATININE FOR GFR 5.81 MG/DL (0.70-1.30); GLOMERULAR FILTRATION RATE 10.4 (>49); POTASSIUM SERUM 4.9 MEQ/L (3.5-5.1)
== END ==
LOC: M WUC 10:07
PROVIDERS: ATTEND Internal Medicine Interventional Cardiology
DX: R94.39 Abnormal result of other cardiovascular function study (principal); I25.118 Atherosclerotic heart disease of native coronary artery with other forms of angina pectoris

== ENCOUNTER → 2020-10-14 | Outpatient (CLI) | payer MEDICARE | LOC: M LABSMTC 09:42 | PROVIDERS: ATTEND Nurse Practitioner | DX: I25.10 Atherosclerotic heart disease of native coronary artery without angina pectoris (principal); Z20.822 Contact with and (suspected) exposure to COVID-19 ==

== ENCOUNTER → 2021-01-01 | Outpatient (REF) | payer MEDICARE ==
[2021-01-01 16:55] LABS: URIC ACID 5.6 MG/DL (3.5-7.2)
[2021-01-01 17:23] LABS: PTH INTACT 507.4 PG/ML (18.5-88.0)
== END ==
LOC: M LAB REF 16:08
PROVIDERS: ATTEND Family Medicine
DX: M10.9 Gout, unspecified (principal); I12.0 Hypertensive chronic kidney disease with stage 5 chronic kidney disease or end stage renal disease

== ENCOUNTER → 2021-09-05 | Outpatient (CLI) | payer MEDICARE ==
[~2021-09-05] MED LIST changes: +BAYE81TA7 PO; +BENA-8 PO; -BENA20TA8 PO; +CENT1TAB2 PO; +D3 A1000 PO; +FLORCAP6 PO; +MILKSUS3 PO; +REPA140I2 SC; +SEVE800T3 PO; +TERA5CAP3 PO; +VITA500T41 PO
== END ==
LOC: M LABSMTC 09:13
PROVIDERS: ATTEND Anesthesiology
DX: Z01.812 Encounter for preprocedural laboratory examination (principal); Z20.822 Contact with and (suspected) exposure to COVID-19

== ENCOUNTER 2021-09-10 10:37 | Day surgery (SDC) | payer MEDICARE ==
[~2021-09-10] VITALS: Ht 167.6 cm; Wt 70.8 kg
[~2021-09-10 10:37] MED LIST changes: +NS 1,000 ML IV ONE
[2021-09-10] MEDS ORDERED: propofoL 200 MG/20 ML VIAL As Ordered ONE (12:14)
[2021-09-10] MEDS ORDERED: LIDOCAINE 2% 100MG/5ML SDV (FOR ANES.) As Ordered ONE (12:14)
[2021-09-10 12:47] VITALS: BP 183/73
== END 2021-09-10 12:55 | disposition home or self-care (01) ==
LOC: M OPP 10:37
PROVIDERS: ATTEND Internal Medicine Gastroenterology
DX: Z01.818 Encounter for other preprocedural examination (principal); N18.6 End stage renal disease; K57.30 Diverticulosis of large intestine without perforation or abscess without bleeding; K64.0 First degree hemorrhoids; Z76.82 Awaiting organ transplant status; Z79.82 Long term (current) use of aspirin; Z79.899 Other long term (current) drug therapy; Z88.8 Allergy status to other drugs, medicaments and biological substances; Z91.048 Other nonmedicinal substance allergy status

== ENCOUNTER → 2021-12-31 | Outpatient (CLI) | payer MEDICARE ==
[~2021-12-31] MED LIST changes: +CHOL25TA9 PO; +CITRACAL MAXIMU1 TAB PO; -CITRTAB16 PO; -D3 A1000 PO; -NS 1,000 ML IV ONE
== END ==
LOC: M RAD 16:59
PROVIDERS: ATTEND Nurse Practitioner Family
DX: Z01.818 Encounter for other preprocedural examination (principal); I25.10 Atherosclerotic heart disease of native coronary artery without angina pectoris; R93.429 Abnormal radiologic findings on diagnostic imaging of unspecified kidney; Z98.84 Bariatric surgery status; K44.9 Diaphragmatic hernia without obstruction or gangrene; M43.06 Spondylolysis, lumbar region; M43.17 Spondylolisthesis, lumbosacral region; R18.8 Other ascites; J98.11 Atelectasis; J90 Pleural effusion, not elsewhere classified; K57.30 Diverticulosis of large intestine without perforation or abscess without bleeding

== ENCOUNTER → 2022-09-03 | Outpatient (CLI) | payer MEDICARE | LOC: M RAD 13:01 | PROVIDERS: ATTEND Internal Medicine Interventional Cardiology | DX: I65.23 Occlusion and stenosis of bilateral carotid arteries (principal) ==

== ENCOUNTER → 2023-07-15 | Outpatient (REF) | payer MEDICARE | LOC: M LAB REF 16:15 | PROVIDERS: ATTEND Family Medicine | DX: Z12.5 Encounter for screening for malignant neoplasm of prostate (principal) ==

== ENCOUNTER → 2023-08-06 | Outpatient (CLI) | payer MEDICARE | LOC: M PLAIMG 10:38 | PROVIDERS: ATTEND Internal Medicine Nephrology | DX: T85.691A Other mechanical complication of intraperitoneal dialysis catheter, initial encounter (principal) ==

== ENCOUNTER → 2023-10-07 | Outpatient (CLI) | payer MEDICARE | LOC: M LAB 12:00 | PROVIDERS: ATTEND Physician Assistant | DX: N18.6 End stage renal disease (principal); Z99.2 Dependence on renal dialysis ==

== ENCOUNTER → 2023-12-30 | Outpatient (CLI) | payer MEDICARE | LOC: M PLAIMG 12:59 | PROVIDERS: ATTEND Nurse Practitioner Family | DX: Z01.818 Encounter for other preprocedural examination (principal); K66.8 Other specified disorders of peritoneum ==

== ENCOUNTER → 2024-07-24 | Outpatient (REF) | payer MEDICARE | LOC: M LAB REF 16:23 | PROVIDERS: ATTEND Family Medicine | DX: Z12.5 Encounter for screening for malignant neoplasm of prostate (principal) ==

== ENCOUNTER → 2025-03-08 | Outpatient (CLI) | payer MEDICARE ==
[~2025-03-08] MED LIST changes: +GLIP2.5T46 PO; -GLIP2.5T6 PO
== END ==
LOC: M RAD 11:36
PROVIDERS: ATTEND Nurse Practitioner Adult Health
DX: I65.23 Occlusion and stenosis of bilateral carotid arteries (principal); E78.2 Mixed hyperlipidemia; I12.0 Hypertensive chronic kidney disease with stage 5 chronic kidney disease or end stage renal disease; N18.6 End stage renal disease